=== PATIENT | female | born 1985 | race Asian ===

== ENCOUNTER 2022-04-25 00:03 | Emergency (ER) | payer OTHER, MEDICAID ==
[2022-04-25 01:08] LABS: BASOPHILS # (AUTO) 0.1 10^3/uL (0.0-0.1); BASOPHILS % (AUTO) 0.4 %; EOSINOPHILS # (AUTO) 0.1 10^3/uL (0.0-0.7); EOSINOPHILS % (AUTO) 0.3 %; HCT - HEMATOCRIT 47.5 % (37.0-47.0); LYMPHOCYTES # (AUTO) 1.4 10^3/uL (1.5-3.5); LYMPHOCYTES % (AUTO) 7.1 %; MEAN CORPUSCULAR HEMOGLOBIN 31.4 pg (27.0-31.0); MEAN CORPUSCULAR HGB CONC 33.7 g/dL (32.0-36.0); MEAN CORPUSCULAR VOLUME 93.1 fL (81.0-99.0); MEAN PLATELET VOLUME 9.4 fL (7.9-10.8); MONOCYTES # (AUTO) 1.3 10^3/uL (0.0-1.0); MONOCYTES % (AUTO) 6.9 %; NEUTROPHILS # (AUTO) 16.2 10^3/uL (1.5-6.6); NEUTROPHILS % (AUTO) 84.9 %; NRBC ABSOLUTE COUNT (AUTO) 0.04 x10^3/uL; NUCLEATED RED BLOOD CELLS AUTO 0.2 /100WBC; PLT - PLATELET COUNT 325 10^3/uL (130-450); RED CELL DISTRIBUTION WIDTH 12.5 % (12.0-15.0); WHITE BLOOD COUNT 19.1 x10^3/uL (4.8-10.8)
[2022-04-25 01:21] LABS: ALBUMIN 4.7 g/dL (3.2-5.5); ALBUMIN/GLOBULIN RATIO 1.5 (1.0-2.2); BILIRUBIN,TOTAL 1.1 mg/dL (0.2-1.0); CALCIUM 9.7 mg/dL (8.5-10.3); CREATININE 0.8 mg/dL (0.4-1.0); POTASSIUM 3.9 mmol/L (3.5-5.0); TOTAL PROTEIN 7.8 g/dL (6.7-8.2)
--- NOTE | 2022-04-25 04:46 | ED Physician Documentation ---
PD HPI ABD PAIN - Stated complaint Stated Complaint: ABD PX - Chief complaint Chief Complaint: Abd Pain - History obtained from History obtained from: Patient - History of Present Illness Timing - onset: How many days ago (2) Timing - duration: Days (2) Timing - details: Gradual onset, Still present Quality: Cramping, Aching, Fullness/distended Location: All over / everywhere Improved by: Laying still Worsened by: Position, Palpation Associated symptoms: Nausea, Vomiting, Constipation Similar symptoms before: Diagnosis (constipation) Recently seen: Not recently seen - Additional information Additional information: 37-year-old Cady Harper presents to the emergency department with abdominal pain. She indicates she has had generalized cramping-like abdominal pain that is severe and has undulated. She has a history of bowel obstruction when she was 1 day old, requiring an extensive operation. She has a scar to her abdomen and states that she has been very careful when she develops any symptoms. She has not had a bowel obstruction since. She did have a bowel movement yesterday but it was scant. She is worried about the possibility of constipation. She has developed some nausea and vomiting today and felt nauseous the day previous. She states that today after she ate she regretted it. Review of Systems Constitutional: denies: Fever Ears: denies: Ear pain Nose: denies: Congestion Throat: denies: Sore throat Cardiac: denies: Chest pain / pressure, Palpitations Respiratory: denies: Dyspnea, Cough GI: reports: Abdominal Pain, Nausea, Vomiting, Constipation : denies: Dysuria, Frequency Skin: denies: Rash Musculoskeletal: denies: Neck pain, Back pain, Extremity pain Neurologic: denies: Generalized weakness, Focal weakness, Numbness PD PAST MEDICAL HISTORY - Present Medications Home Medications: Ambulatory Orders Medication Instructions Recorded Confirmed Bupropion HCl [Wellbutrin Xl] 300 mg PO DAILY 04/25/22 04/25/22 Liraglutide [Victoza 2-[place]] 0.6 mg SQ DAILY 04/25/22 04/25/22 - Allergies Allergies/Adverse Reactions: Allergies Allergy/AdvReac Type Severity Reaction Status Date / Time No Known Drug Allergies Allergy Verified 04/25/22 00:11 PD ED PE NORMAL - Vitals Vital signs reviewed: Yes (hypertensive ) - General General: Alert and oriented X 3, No acute distress, Well developed/nourished - HEENT HEENT: Atraumatic, PERRL, EOMI - Neck Neck: Supple, no meningeal sign, No bony TTP - Cardiac Cardiac: RRR, No murmur - Respiratory Respiratory: No respiratory distress, Clear bilaterally - Abdomen Abdomen: Normal bowel sounds, Soft, Other (There is a well healed surgical scar to the abdomen which is deep and acrosss the entire abdomen. The abdomen is soft with mild tenderness and no focal tenderness. ) - Back Back: No CVA TTP, No spinal TTP - Derm Derm: Normal color, Warm and dry, No rash - Extremities Extremities: No deformity, No edema - Neuro Neuro: Alert and oriented X 3, spotter 2-12 intact, No motor deficit, No sensory deficit, Normal speech Eye Opening: Spontaneous Motor: Obeys Commands Verbal: Oriented GCS Score: 15 - Psych Psych: Normal mood, Normal affect Results - Vitals Vitals: Vital Signs - 24 hr 04/25/22 04/25/22 04/25/22 00:07 01:20 03:07 Temperature 36.5 C Heart Rate 78 76 80 Respiratory 16 15 16 Rate Blood Pressure 121/86 H 118/88 H 105/80 O2 Saturation 98 100 96 Oxygen O2 Source Room air - Labs Labs: Laboratory Tests 04/25/22 04/25/22 01:03 01:03 WBC 19.1 H RBC 5.10 Hgb 16.0 Hct 47.5 H MCV 93.1 MCH 31.4 H MCHC 33.7 RDW 12.5 Plt Count 325 MPV 9.4 Neut # (Auto) 16.2 H Lymph # (Auto) 1.4 L Brewster # (Auto) 1.3 H Eos # (Auto) 0.1 Baso # (Auto) 0.1 Absolute Nucleated RBC 0.04 Nucleated RBC % 0.2 Sodium 138 Potassium 3.9 Chloride 103 Carbon Dioxide 24 Anion Gap 11.0 BUN 11 Creatinine 0.8 Estimated GFR (MDRD) 81 L Glucose 128 H Calcium 9.7 Total Bilirubin 1.1 H AST 22 ALT 25 Alkaline Phosphatase 39 L Total Protein 7.8 Albumin 4.7 Globulin 3.1 Albumin/Globulin Ratio 1.5 Lipase 35 - Rads (name of study) CT ab pel without Radiology: Prelim report reviewed (Impression: 1. Moderately distended fluid-filled colon extended to the level of the mid descending colon. Findings can be seen in the setting of a colitis and/or diarrhea. No evidence of bowel obstruction or perforation.), EMP read indepedently, See rad report PD MEDICAL DECISION MAKING - ED course Complexity details: reviewed results, re-evaluated patient, considered sonia haro, d/w patient ED course: 37 y/o female with obstipation. She is given an enema. She has some results and feels better. She is instructed to drink fluids and forego food for 2 days. Departure - Departure Disposition: 01 Home, Self Care Clinical Impression: Obstipation Condition: Stable Instructions: ED Constipation Follow-Up: SHOAIB ALEMAN CNM [Primary Care Provider] - Comments: Cady, today it looks like you are constipated and this extends to the small intestine and stomach. The recommendation is to not eat for the next 2 days. Be sure to hydrate. The expectation is resolution of your symptoms over this period of time. Forms: Activity restrictions
[2022-04-25 05:38] VITALS: BP 103/83
--- NOTE | 2022-04-25 09:28 | CT Report ---
PROCEDURE: Abdomen/Pelvis WO INDICATIONS: Generalized abd pain nausea and vomiting. TECHNIQUE: Noncontrast 5 mm thick sections acquired from the diaphragms to the symphysis. 5 mm coronal and sagi ttal reformats were then performed. For radiation dose reduction, the following was used: automated exposure control, adjustment of mA and/or kV according to patient size. COMPARISON: None. FINDINGS: Image quality: Excellent. ABDOMEN: Lung bases: Left basilar atelectasis. Heart size is normal. Solid organs: Liver and spleen are normal in size. Gallbladder is normal Pancreas is normal in con tours. No adrenal nodules. Kidneys are normal in size, without hydronephrosis or nephrolithiasis. Peritoneum and bowel: Stomach and small intestines are normal in caliber and wall thickness. Fluid-f illed proximal colon demonstrates normal wall thickness and caliber. Small bowel loops and small bow el mesentery are seen lateral to the right colon (best seen on series 6 image 24), suggesting pericec al internal hernia. No CT findings to suggest small bowel obstruction. No free fluid or air. Nodes and vessels: No retroperitoneal or mesenteric adenopathy by size criteria. Aorta and inferior vena cava are normal in caliber. Miscellaneous: No ventral hernias. PELVIS: Genitourinary: Uterus and ovaries are unremarkable. No pathological free fluid in the cul-de-sac or adnexa. Bladder wall thickness is normal. Miscellaneous: No inguinal hernias or adenopathy. Bones: No suspicious bony lesions. No vertebral body compression fractures. IMPRESSION: 1. Fluid-filled proximal colon loops are seen, which is likely secondary to nonspecific gastroenterit is. 2. Small bowel loops and small bowel mesentery are seen lateral to the right colon. The CT findings s uggest pericecal internal hernia. No CT findings to suggest small bowel obstruction. No significant discrepancy with the preliminary interpretation. Reviewed by: Suzette Rodriguez MD on 04/25/2022 9:27 AM PDT Approved by: Suzette Rodriguez MD on 04/25/2022 9:27 AM PDT Station ID: [id number]
[2022-04-25 09:44] LABS: BILIRUBIN,URINE NEGATIVE (NEGATIVE); GLUCOSE, URINE (UA) NEGATIVE (NEGATIVE); KETONES,URINE (UA) >=80 mg/dL (NEGATIVE); LEUKOCYTE ESTERASE, URINE NEGATIVE (NEGATIVE); NITRITE,URINE NEGATIVE (NEGATIVE); OCCULT BLOOD,URINE NEGATIVE (NEGATIVE); PH,URINE 6.5 PH (5.0-7.5); PROTEIN,URINE TRACE mg/dL (NEGATIVE); UROBILINOGEN,URINE 0.2 (NORMAL) E.U./dL (NORMAL)
[2022-04-25 09:45] LABS: CLARITY,URINE CLEAR (CLEAR); HCG UR QUAL NEGATIVE
== END 2022-04-25 05:45 | disposition home or self-care (01) ==
LOC: ED 00:03 → SUPCPDRO 00:03 → ED 05:45
DX: K59.00 Constipation, unspecified (principal)
CPT/HCPCS: 36415; 80053; 81001; 81003; 81025; 83690; 85025; 87086; 99282; 99284

== ENCOUNTER 2024-07-22 14:14 | Emergency (ER) | payer MEDICAID, OTHER ==
--- NOTE | 2024-07-22 15:52 | ED Physician Documentation ---
History of Present Illness - Stated complaint Stated Complaint: C+,VERTIGO,N/V - Chief complaint Chief Complaint: Neuro - History obtained from History obtained from: Patient - History of Present Illness Timing: Chronic Pain level max: 0 Pain level now: 0 - Additonal information Additional information: 39-year-old female with a history of vertigo ongoing for the past 8 months. She is seeing ENT. She has had an MRI. 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 She has been put on scopolamine patches in the past. She states she tested positive for COVID again yesterday, states started having worsening vertigo today along with vomiting. Has not taken anything for nausea or vomiting. But the scopolamine patch back on about an hour ago. Feels like the room is spinning. No focal neurological deficits. No numbness or tingling. No headache. No head injury. No neck or back pain. Denies any possibility of . Patient states she has rhinorrhea, cough and congestion for about the past week. Review of Systems Constitutional: denies: Fever, Chills Respiratory: denies: Cough GI: reports: Nausea, Vomiting. denies: Diarrhea Skin: denies: Rash Musculoskeletal: denies: Neck pain, Back pain Neurologic: denies: Headache PD PAST MEDICAL HISTORY - Past Medical History Past Medical History: Yes Cardiovascular: None Respiratory: None Neuro: Other Endocrine/Autoimmune: Type 1 diabetes GI: Other ENVIRONMENTAL SERVICES MANAGER: None : None HEENT: Chronic hearing loss, Other Psych: None Musculoskeletal: None Derm: None Other Past Medical History: vertigo - Past Surgical History Past Surgical History: Yes General: Bowel surgery - Present Medications Home Medications: Ambulatory Orders Medication Instructions Recorded Confirmed Liraglutide [Victoza 2-[place]] 0.6 mg SQ DAILY 04/25/22 04/25/22 buPROPion HCL [Wellbutrin Xl] 300 mg PO DAILY 04/25/22 04/25/22 Meclizine HCl 25 mg PO Q6H PRN #30 tab 07/22/24 Ondansetron Odt [Zofran] 4 mg TL Q6H PRN #20 tablet 07/22/24 - Allergies Allergies/Adverse Reactions: Allergies Allergy/AdvReac Type Severity Reaction Status Date / Time No Known Drug Allergies Allergy Verified 07/22/24 14:23 - Social History Does the pt smoke?: No Smoking Status: Never smoker Does the pt drink ETOH?: Yes Does the pt have substance abuse?: Yes Substance Use and Type: Marijuana - Immunizations Immunizations are current?: Yes - POLST Patient has POLST: No PD ED PE NORMAL - Vitals Vital signs reviewed: Yes - General General: Alert and oriented X 3, No acute distress - HEENT HEENT: Atraumatic, PERRL, Moist mucous membranes, Pharynx benign, Other (Horizontal nystagmus to the left) - Neck Neck: Supple, no meningeal sign, No bony TTP - Cardiac Cardiac: RRR, Strong equal pulses - Respiratory Respiratory: No respiratory distress, Clear bilaterally - Abdomen Abdomen: Soft, Non tender, Non distended - Derm Derm: Warm and dry - Extremities Extremities: No edema, No calf tenderness / cord - Neuro Neuro: Alert and oriented X 3, dolphin trainer 2-12 intact, No motor deficit, No sensory deficit, Normal speech Eye Opening: Spontaneous Motor: Obeys Commands Verbal: Oriented GCS Score: 15 - Psych Psych: Normal mood, Normal affect Results - Vitals Vitals: Vital Signs - 24 hr 07/22/24 07/22/24 07/22/24 14:24 16:30 17:22 Temperature 36.9 C 36.2 C L Heart Rate 67 64 77 Respiratory 18 16 18 Rate Blood Pressure 107/71 110/76 102/72 O2 Saturation 99 98 100 Oxygen O2 Source Room air PD Medical Decision Making - ED course Complexity details: reviewed results, re-evaluated patient, considered differential, d/w patient ED course: Patient with her usual vertigo, has already had an extensive workup including MRI and ENT consultation. She reapplied her scopolamine patch prior to coming to the emergency department. She was given a dose of Zofran and meclizine here. She does feel better. No indication for further workup at this time. No evidence of subarachnoid hemorrhage, intracranial hemorrhage or mass. No indication for repeat imaging. Ambulating without difficulty and tolerating p.o. without difficulty. Will prescribe medication for nausea and vertigo for home and have her follow-up with her doctor for further care. Likely the COVID she tested positive for yesterday is flaring her vertiginous symptoms. Patient counseled regarding signs and symptoms for which I believe and urgent re-jessika luation would be necessary. Patient with good understanding of and agreement to plan and is comfortable going home at this time This document was made in part using voice recognition software. While efforts are made to proofread this document, sound alike and grammatical errors may occur. Departure - Departure Disposition: 01 Home, Self Care Clinical Impression: Vertigo Condition: Good Instructions: ED Vertigo Unspecified Follow-Up: your,doctor in 1 week [Other] Prescriptions: Meclizine HCl 25 mg PO Q6H PRN #30 tab PRN Reason: Dizziness Ondansetron Odt [Zofran] 4 mg TL Q6H PRN #20 tablet PRN Reason: Nausea / Vomiting Comments: Your prescription was sent to [facility] in [place]. Please follow-up with your doctor for further care. I do recommend following up with your ENT to discuss your ongoing vertigo. You can continue your scopolamine patches at home as well. Forms: PCP List Discharge Date/Time: 07/22/24 17:22
[2024-07-22] MEDS: MECLIZINE 12.5 MG TABLET PO STA (16:03)
[2024-07-22] MEDS: ONDANSETRON ODT 4 MG TABLET TL STA (16:03)
[2024-07-22] MEDS: CHERRY SYRUP 10 ML UDC PO STA (17:04)
[2024-07-22] MEDS: DEXAMETHASONE 10 MG/ML VIAL PO STA (17:04)
[2024-07-22 17:29] VITALS: BP 102/72; O2SAT 100
== END 2024-07-22 17:22 | disposition home or self-care (01) ==
LOC: ED 14:14
DX: R42 Dizziness and giddiness (principal); E10.9 Type 1 diabetes mellitus without complications; Z79.899 Other long term (current) drug therapy
CPT/HCPCS: 99283; A9270; Q0162